=== PATIENT | male | born 1975 | race Two or more races ===

== ENCOUNTER 2021-06-09 20:30 | Emergency (ER) | payer OTHER ==
[~2021-06-09] VITALS: Ht 175.3 cm; Wt 89.8 kg
[~2021-06-09 20:30] MED LIST: ACIDOPHILUS1 EAC3 PO; MUPIROCIN22 GM TOP; ZANTAC150 MG PO
[2021-06-09] MEDS ORDERED: LISINOPRIL10 MG (21:37)
== END 2021-06-09 22:55 | disposition home or self-care (01) ==
LOC: ER 20:30
DX: I10 Essential (primary) hypertension (principal); R51.9 Headache, unspecified; R03.0 Elevated blood-pressure reading, without diagnosis of hypertension

== ENCOUNTER 2021-06-10 16:09 | Emergency (ER) | payer OTHER ==
[~2021-06-10] VITALS: Ht 175.3 cm; Wt 86.2 kg
[~2021-06-10 16:09] MED LIST changes: +LISINOPRIL10 MG
== END 2021-06-10 18:05 | disposition home or self-care (01) ==
LOC: ER 16:09
DX: R51.9 Headache, unspecified (principal); I10 Essential (primary) hypertension